=== PATIENT | male | born 1995 | race Caucasian/White ===

== ENCOUNTER 2021-11-01 07:51 | Observation (INO) ==
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
--- NOTE | 2021-10-31 09:24 | Anesthesiology Consultation ---
Date of Service October 31, 2021 Assessment & Plan (1) Encounter for pre-operative examination: - check CBC with diff, BMP, coags, LFTs and EKG am DOS. - severe alcohol use disorder. - illicit substance use disorder. - COVID screening: Per chief projectionist on 10/31/2021: Travel screen negative, no known COVID-19 positive contacts or current COVID-19 related symptoms in past 2 weeks. Surgeon arranging preop COVID testing. Chart Review Chart Review: Acceptable Risk for Surgery and Patient NOT seen in Pre Admission Testing History Surgery Operation Date: 11/01/21 11:25 Proposed Procedures p Left Open Reduction Internal Fixation Left Calcaneal Fracture - Nick Garcia, Height/Weight Height: 5 ft 6 in Weight: 83.915 kg Allergies Allergy/AdvReac Type Severity Reaction Status Date / Time No Known Allergies Allergy Verified 10/31/21 08:28 Medications Home Medications Medication Instructions Recorded Confirmed Last Taken acetaminophen 300 mg-codeine 30 mg 1 tab PO TID PRN 10/31/21 10/31/21 Unknown tablet acetaminophen 500 mg tablet 500 mg PO TID PRN 10/31/21 10/31/21 Unknown olanzapine 10 mg tablet 10 mg PO HS 10/31/21 10/31/21 Unknown Past Medical History Medical History Other stimulant use, unspecified with other stimulant-induced disorder Severe alcohol use disorder Unspecified fracture of left calcaneus, sequela Past Family History Family History Other Family history unknown Past Surgical History Surgical History Surgical history unknown Social History Smoking Status: Unknown if ever smoked Hx Alcohol Use: Yes (per record from [facility] hx of alcohol abuse, severe) Hx Substance Use: Yes (per record from [facility] hx of drug abuse)
[~2021-11-01 07:51] MED LIST: BUPIVACAINE 0.25% 30 ML VIAL ONE; EPINEPHrine INJ 1 MG/ML AMP ONE; LR 15ML/HR IV SCH
[2021-11-01] MEDS ORDERED: MIDAZOLAM HCL 1 MG/ML 2ML VIAL ONE ×3 (08:07→10:50)
[2021-11-01] MEDS ORDERED: fentaNYL citrate 100 MCG/2 ML VIAL ONE ×4 (08:07→12:28)
[2021-11-01] MEDS ORDERED: PROPOFOL IV EMULSION 10 MG/ML 20 ML VIAL IV ONE ×3 (08:07→10:34)
[2021-11-01] MEDS ORDERED: ONDANSETRON INJ 2 MG/ML 2 ML VIAL ONE (08:07)
[2021-11-01] MEDS ORDERED: KETAMINE 50 MG/5 ML SYRINGE ONE (08:17)
[2021-11-01] MEDS ORDERED: ePHEDrine sulfate 50 MG/ML AMP IV PRN (08:55)
[2021-11-01] MEDS ORDERED: ONDANSETRON INJ 2 MG/ML 2 ML VIAL IV PRN ×2 (08:55→14:24)
[2021-11-01] MEDS ORDERED: ATROPINE SULFATE 0.1 MG/ML 10ML SYR IV PRN (08:55)
[2021-11-01] MEDS ORDERED: HYDROmorphone INJ 2 MG/ML SYR/VIAL IV PRN (08:55)
[2021-11-01] MEDS ORDERED: BUPIVACAINE 0.25% 30 ML VIAL ONE (09:13)
[2021-11-01 09:26] LABS: Basophils # (auto) 0.03 K/uL (0-0.2); Basophils % (auto) 0.6 %; Eosinophils % (auto) 3.8 %; Hematocrit (blood only) 39.3 % (42-52); Hemoglobin 13.7 g/dL (14.0-18.0); Immature Granulocytes # (auto) 0.01 K/uL (0.00-0.02); Immature Granulocytes % (auto) 0.2 %; Lymphocytes # (auto) 0.98 K/uL (1.2-3.4); Lymphocytes % (auto) 18.7 %; Mean Corpuscular Hemoglobin 31.7 pg (25-34); Mean Platelet Volume 10.9 fL (7.4-10.4); Monocytes # (auto) 0.42 K/uL (0.11-0.59); Neutrophils % (auto) 68.7 %; Platelet Count 271 K/uL (130-400); RDW Coefficient of Variation 12.3 % (11.5-14.5); RDW Standard Deviation 41.1 fL (36.4-46.3); Red Blood Count 4.32 M/uL (4.7-6.1); White Blood Count 5.24 K/uL (4.8-10.8)
[2021-11-01 09:32] LABS: Mean Corpuscular Hgb Conc 34.9 g/dL (32-36)
--- NOTE | 2021-11-01 09:39 | History & Physical Bridge Note ---
Date of Service November 01, 2021 History & Physical Bridge Note I have examined the patient, reviewed the History & Physical and in the interval since the performance of the History & Physical I have noted the following changes of clinical significance: no changes noted
[2021-11-01 09:40] LABS: INR 1.1 (0.9-1.1); Partial Thromboplastin Time 25.1 Seconds (21.0-31.0); Prothrombin Time 10.9 Seconds (9.0-12.0)
[2021-11-01] MEDS ORDERED: ceFAZolin 2,000 MG/15 ML IV PUSH IV ONE (09:41)
[2021-11-01 09:48] LABS: Albumin Level 3.9 gm/dl (3.4-5.0); BUN Creatinine Ratio 14.7 (10-20); Bilirubin Direct 0.1 mg/dl (0-0.2); Bilirubin,Total 0.7 mg/dl (0.2-1.0); Calcium 9.2 mg/dl (8.5-10.1); Creatinine Clr Calc Pharmacy 153.5 ml/min; Est GFR (African American) 148.8 ml/min; Est GFR (Non-African American) 128.4 ml/min; Total Protein 6.8 gm/dl (6.0-8.3)
[2021-11-01] MEDS ORDERED: KETOROLAC 30 MG/ML VIAL ONE (10:40)
[2021-11-01] MEDS ORDERED: GLYCOPYRROLATE 0.2 MG/ML VIAL ONE (10:40)
[2021-11-01] MEDS ORDERED: SUCCINYLCHOLINE CHLORIDE 20 MG/ML 10 ML VIAL IV ONE (11:06)
--- NOTE | 2021-11-01 12:48 | Fluoroscopy Report ---
FL heel LT 2V CLINICAL HISTORY: Left calcaneal internal fixation. COMPARISON STUDY: None. FLUOROSCOPY TIME: 38 second. FINDINGS: 2 fluoroscopic spot images of the left calcaneus demonstrate a cortical plate transfixed wi th screws bridging the comminuted calcaneal fracture. The hardware appears intact. The alignment is n ear anatomic. IMPRESSION: Fluoroscopic assistance provided for internal fixation of a left calcaneal fracture. ACT 112: Negative or not required by law. Electronically signed by: Martin Arias M.D. 11/01/2021 12:47 PM
--- NOTE | 2021-11-01 13:04 | Post Operative Brief Note ---
Immediate Post Op Note v1 Date of Surgery November 01, 2021 Pre & Post Diagnosis Operation Date: 11/01/21 09:15 Pre-Op Diagnosis: Left displaced comminuted calcaneus Fracture Post-Op Diagnosis: Left displaced comminuted calcaneus Fracture I identified the patient and participated in the time-out.: Yes Procedure Operation Date: 11/01/21 09:15 Actual Procedures p Left Open Reduction Internal Fixation displaced comminuted calcaneal Fracture(Left) - Nick Garcia DO Surgeon Nick Garcia DO Jalousie Installer Sam Pierce PA-C Estimated Blood Loss 5 Findings Consistent with Post-Op Diagnosis Anesthesia Type General Regional Complications none Disposition Accompanied Patient To Recovery: No
[2021-11-01] MEDS: fentaNYL citrate 100 MCG/2 ML VIAL IV PRN ×2 (13:40→13:45)
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
--- NOTE | 2021-11-01 14:03 | Anesthesiology Progress Note ---
Date of Service November 01, 2021 Anesthesia Post Procedure Vital Signs Vital Signs: Temp Pulse Pulse Resp BP Pulse Ox 11/01/21 13:50 36.4 C L 91 H 16 136/87 100 11/01/21 13:40 110 H 20 153/95 H 100 11/01/21 13:30 115 H 22 159/92 H 100 11/01/21 13:20 131 H 20 155/106 H 96 11/01/21 13:11 36.5 C 113 H 20 139/100 96 11/01/21 08:15 36.7 C 65 20 132/84 99 Pain Intensity Left Ankle: Pain Intensity: 5 Transfer of Care Handoff Completed per policy Notes Mental Status: alert / awake / arousable and participated in evaluation Patient Amnestic to Procedure: Yes Nausea / Vomiting: adequately controlled Pain: adequately controlled Airway Patency, RR, SpO2: stable & adequate BP & HR: stable & adequate Hydration State: stable & adequate Anesthetic Complications: no major complications apparent and Pt Satisfied with anesthetic care
--- NOTE | 2021-11-01 14:05 | XRay Report ---
XR calcaneus LT min 2V CLINICAL HISTORY: Postop TECHNIQUE: 2 views of the left calcaneus were obtained. Comparison: Comparison is made to CT left lower extremity to 10/10/2021 FINDINGS: Postoperative appearance of the calcaneus with plate and screw fixation hardware in place. The fractu re fragments are in anatomic alignment. Evaluation of fine bony detail is limited due to overlying ca st. The alignment is anatomic. The joint spaces are well preserved. Soft tissue swelling is seen. IMPRESSION: Expected postoperative appearance status post plate and screw fixation hardware of the calcaneal frac tures, which are in anatomic alignment. ACT 112: Negative or not required by law. Electronically signed by: Derian Posey M.D. 11/01/2021 2:04 PM
[2021-11-01] MEDS ORDERED: bisacodyL 10 MG SUPP PR PRN (14:24)
[2021-11-01] MEDS ORDERED: NALOXONE HCL 0.4 MG/1 ML VIAL/CARP IV PRN (14:24)
[2021-11-01] MEDS ORDERED: MAGNESIUM HYDROXIDE SUSP 30 ML UDC PO PRN (14:24)
[2021-11-01] MEDS ORDERED: diphenhydrAMINE Capsule 25 MG CAP PO PRN (14:24)
[2021-11-01] MEDS ORDERED: ALUMINUM/MAGNESIUM SUSP 30 ML UDC PO PRN (14:24)
[2021-11-01] MEDS ORDERED: NO NSAIDS SCH (14:24)
[2021-11-01] MEDS ORDERED: METOCLOPRAMIDE HCL INJ 5 MG/ML 2 ML VIAL IV PRN (14:24)
[2021-11-01] MEDS: oxyCODONE HCL IR 5 MG TAB (IMMEDIATE RELEASE) PO PRN ×2 (14:35→18:35)
[2021-11-01] MEDS: ACETAMINOPHEN 500 MG TAB PO SCH ×2 (14:40→21:05)
[2021-11-01] MEDS ORDERED: SODIUM CHLORIDE 0.9% 1000ML 1,000 ML IV SCH (15:00)
[2021-11-01] MEDS: HYDROmorphone INJ 0.5 MG/0.5 ML SYR IV PRN (15:06)
[2021-11-01] MEDS: ceFAZolin 2000MG 2,000 MG/15 ML SYR IV SCH (18:35)
[2021-11-01] MEDS ORDERED: SENNA 8.6 MG TAB PO SCH (21:00)
[2021-11-01] MEDS ORDERED: OLANZapine 10 MG TAB PO SCH (21:00)
[2021-11-01] MEDS: ASPIRIN 81 MG ECTAB PO SCH (21:05)
[2021-11-01] MEDS: DOCUSATE SODIUM 100 MG CAP PO SCH (21:05)
[2021-11-02] MEDS: oxyCODONE HCL IR 5 MG TAB (IMMEDIATE RELEASE) PO PRN ×3 (00:24→15:34)
[2021-11-02] MEDS: HYDROmorphone INJ 0.5 MG/0.5 ML SYR IV PRN ×2 (02:27→12:07)
[2021-11-02] MEDS: ceFAZolin 2000MG 2,000 MG/15 ML SYR IV SCH (02:29)
[2021-11-02] MEDS: ACETAMINOPHEN 500 MG TAB PO SCH ×2 (05:27→14:19)
--- NOTE | 2021-11-02 06:43 | Orthopedic Progress Note ---
Date of Service November 02, 2021 Assessment & Plan (1) Left calcaneal fracture: Plan: POD #1 s/p Left Open Reduction Internal Fixation Left Calcaneal Fracture NWB left leg ice/elevate above heart level for swelling ASA x 4 weeks as outlined in d/c instructions can d/c today Admission and Anticipated Discharge Date Admission Date: November 01, 2021 Subjective POD #1 s/p Left Open Reduction Internal Fixation Left Calcaneal Fracture Review of Systems Constitutional: no fever and no chills Respiratory: no cough and no dyspnea Cardiovascular: no chest pain and no dyspnea Gastrointestinal: no abdominal pain, no nausea and no vomiting Physical Exam Physical Exam: Vital Signs Temp 37.3 C 11/02/21 04:00 Pulse 69 11/02/21 04:00 Resp 17 11/02/21 04:00 BP 122/75 11/02/21 04:00 Pulse Ox 94 11/02/21 04:00 Intake & Output 11/01/21 11/01/21 11/02/21 06:59 18:59 06:59 Intake Total 700 / 1940 1240 / 1940 Output Total 355 / 2405 2050 / 2405 Balance 345 / -465 -810 / -465 Weight 79.4 kg Intake: IV 0 / 1000 1000 / 1000 Lactated Ringe r's 1,000 ml @ 15 0 / 0 mls/hr IV .Q24 H DALLIN Rx#: [id number] Sodium Chlorid e 0.9% 1000ML 1, 1000 / 1000 000 ml @ 100 m ls/hr IV .Q10H DALLIN Rx#:[id number] IV Perioperative 700 / 700 Oral 240 / 240 Output: Urine 350 / 2400 2050 / 2400 Estimated Blood Loss 5 / 5 Other: Weight Measureme nt Method Standing Scale Constitutional: WD/WN, vitals as above Musculoskeletal: Ankle: + ankle abnormal to inspection (dressing clean and dry. NVDI. able to wiggle his toes, CR less than 2 sec) Results & Data ([facility]) Vital Signs (Past 12 Hours) Vital Signs Temp Pulse Resp BP Pulse Ox 11/02/21 04:00 37.3 C 69 17 122/75 94 11/01/21 22:29 36.9 C 82 18 142/83 H 97
[2021-11-02 06:44] LABS: Hematocrit (blood only) 35.4 % (42-52); Mean Corpuscular Hgb Conc 33.9 g/dL (32-36); Mean Corpuscular Volume 91.5 fL (80-100); Mean Platelet Volume 10.7 fL (7.4-10.4); Platelet Count 244 K/uL (130-400); RDW Coefficient of Variation 12.3 % (11.5-14.5); Red Blood Count 3.87 M/uL (4.7-6.1); White Blood Count 8.68 K/uL (4.8-10.8)
[2021-11-02 06:47] LABS: Calcium 8.8 mg/dl (8.5-10.1); Creatinine Clr Calc Pharmacy 147.5 ml/min; Est GFR (African American) 146.4 ml/min; Est GFR (Non-African American) 126.3 ml/min; Potassium 3.8 mmol/L (3.5-5.1)
[2021-11-02] MEDS ORDERED: MULTIVITAMIN TAB PO SCH (09:00)
[2021-11-02] MEDS: DOCUSATE SODIUM 100 MG CAP PO SCH (09:15)
[2021-11-02] MEDS: ASPIRIN 81 MG ECTAB PO SCH (09:15)
--- NOTE | 2021-11-02 11:10 | XRay Report ---
XR wrist LT min 3V routine CLINICAL HISTORY: L wrist pain s/p fall COMPARISON STUDY: None. FINDINGS: Slightly comminuted and mildly impacted distal left radius fracture demonstrating intravent ricular extension and up to 3 mm of dorsal displacement. Mildly displaced ulnar styloid fracture. The carpal bones are intact. No dislocation. Soft tissue swelling within the left wrist. IMPRESSION: Distal left radius and ulnar styloid fractures as described above. ACT 112: Negative or not required by law. Electronically signed by: Martin Arias M.D. 11/02/2021 11:09 AM
== END 2021-11-02 15:52 ==
LOC: ASU 07:51 → 3E 07:51